=== PATIENT | male | born 1950 | race Hispanic/Latino ===

== ENCOUNTER → 2022-09-04 | Outpatient (CLI) | payer OTHER ==
[~2022-09-04] MED LIST: IOHEXOL 350 MG/ML 100ML INFUS..BTL IV ONE
== END | disposition home or self-care (01) ==
LOC: RAH 07:34
PROVIDERS: ATTEND Internal Medicine
DX: K40.90 Unilateral inguinal hernia, without obstruction or gangrene, not specified as recurrent (principal); R10.2 Pelvic and perineal pain
CPT/HCPCS: 74178; Q9967; 74177

== ENCOUNTER → 2024-06-15 | Outpatient (CLI) | payer OTHER | END | disposition home or self-care (01) | LOC: RAH 11:15 | PROVIDERS: ATTEND Internal Medicine | DX: K57.30 Diverticulosis of large intestine without perforation or abscess without bleeding (principal); R10.32 Left lower quadrant pain; Z87.19 Personal history of other diseases of the digestive system; I25.10 Atherosclerotic heart disease of native coronary artery without angina pectoris | CPT/HCPCS: 74177; Q9967 ==

== ENCOUNTER → 2024-12-21 | Outpatient (CLI) | payer OTHER ==
--- NOTE | 2024-12-21 11:44 | HMCIMG ---
CT ABDOMEN WITHOUT CONTRAST. CT PELVIS WITHOUT CONTRAST. INDICATION: Gross hematuria TECHNIQUE: Routine transaxial imaging using 5 mm slice thickness through the abdomen and pelvis without the administration of IV contrast. Thin slice reconstructions are also provided. Coronal and sagittal reformatted images acquired for interpretation. CT was performed with one or more of the following dose reduction techniques: Automated exposure control, adjustment of the mA and/or kV according to patient size, or use of iterative reconstruction technique. COMPARISON: 06/15/2024 FINDINGS: ON NONCONTRAST IMAGING: ABDOMEN: Heart size is normal. Generalized bilateral lung subpleural scarring. No abnormal renal calcifications, hydronephrosis, perinephric inflammation, or proximal hydroureter detected. The liver is normal in size and smooth in contour without biliary duct dilation. The spleen is normal in size and attenuation. The gallbladder appears normal. The pancreas appears normal without pancreatic duct dilation. The adrenal glands appear normal. No significant abdominal, retrocrural or retroperitoneal adenopathy noted. No evidence for intra-abdominal free air or organized fluid collection. No aortic aneurysmal dilation identified. PELVIS: Mild urinary bladder wall thickening, slightly more than expected for degree of distention. No significant surrounding inflammatory fat stranding identified. No evidence for free air or organized pelvic fluid collection. No significant pelvic adenopathy detected. Several diverticula along the distal colon. Moderate stool burden. Terminal ileum appears unremarkable. The appendix appears normal. Chronic bilateral L5 spondylolysis contributing to low-grade (2 mm) anterolisthesis of L5 upon S1. IMPRESSION: Mild urinary bladder wall thickening, slightly more than expected for degree of distention, without urolithiasis. Correlation with urine studies is recommended. Distal colonic diverticulosis.
--- NOTE | 2024-12-21 11:51 | HMCIMG ---
ULTRASOUND SOFT TISSUE GROIN INDICATION: Right inguinal mass COMPARISON: None TECHNIQUE: Multiplanar sonographic images of the right inguinal canal/groin were obtained earlier in real-time using grayscale and color Doppler technique, and subsequently made available for review. FINDINGS/IMPRESSION: No lymphadenopathy, soft tissue mass, or cystic lesion demonstrated. 2.5 x 2.1 x 1.3 cm right inguinal hernia demonstrated and smaller 1.0 x 1.9 x 1.3 cm left inguinal hernia demonstrated.
== END | disposition home or self-care (01) ==
LOC: RAH 10:24
PROVIDERS: ATTEND Internal Medicine
DX: K57.30 Diverticulosis of large intestine without perforation or abscess without bleeding (principal); K40.20 Bilateral inguinal hernia, without obstruction or gangrene, not specified as recurrent; M47.816 Spondylosis without myelopathy or radiculopathy, lumbar region; J98.4 Other disorders of lung; R31.0 Gross hematuria; N32.89 Other specified disorders of bladder; R20.8 Other disturbances of skin sensation; R10.31 Right lower quadrant pain
CPT/HCPCS: 74176; 76882

== ENCOUNTER → 2025-04-27 | Outpatient (CLI) | payer OTHER ==
--- NOTE | 2025-04-27 11:23 | HMCIMG ---
DEXA BONE DENSITY SURVEY HISTORY: Disorder of bone density COMPARISON: None FINDINGS: Bone densitometry study was performed. Bone mineral density of the lumbar spine is 0.899 gram per centimeter square which corresponds to a T score of -1.7 and a Z score of -0.8. Bone mineral density of the left hip is 0.889 grams per centimeter square which corresponds to a T score of -1.3 and a Z score of -0.5. IMPRESSION: 1. Osteopenia of the lumbar spine and left hip.
== END | disposition home or self-care (01) ==
LOC: RAH 08:03
PROVIDERS: ATTEND Internal Medicine
DX: M85.89 Other specified disorders of bone density and structure, multiple sites (principal)
CPT/HCPCS: 77080